=== PATIENT | female | born 1965 | race Two or more races ===

== ENCOUNTER 2022-09-28 12:56 | Emergency (ER) | payer OTHER ==
[~2022-09-28] VITALS: Ht 160 cm; Wt 63.5 kg
[~2022-09-28 12:56] MED LIST: AMBIEN10 MG PO; ATIVAN0.5 M1 PO; LEVSIN0.125 MG PO; MICARDIS80 MG PO; PROTONIX40 MG PO; ZANTAC300 MG PO
== END 2022-09-28 18:38 | disposition home or self-care (01) ==
LOC: ER 12:56
DX: K59.00 Constipation, unspecified (principal); I10 Essential (primary) hypertension; R11.10 Vomiting, unspecified
CPT/HCPCS: 36415; 74178; Q9965

== ENCOUNTER 2024-05-10 22:05 | Emergency (ER) | payer OTHER ==
[~2024-05-10] VITALS: Ht 160 cm; Wt 63.5 kg
[2024-05-10] MEDS ORDERED: ZESTRIL40 M1 (22:19)
[2024-05-11] MEDS ORDERED: METOCLOPRAMIDE HCL 5 MG/ML VIAL IM STA (01:16)
[2024-05-11] MEDS ORDERED: PROMETHAZINE HCL 25 MG/ML AMPUL IM STA (01:18)
[2024-05-11] MEDS ORDERED: 0.9 % SODIUM CHLORIDE 1,000 ML IV STA (01:19)
[2024-05-11] MEDS ORDERED: HYOSCYAMINE SULFATE 0.125 MG TAB.SUBL SL STA (01:20)
[2024-05-11] MEDS ORDERED: FAMOtidine 10 MG/ML (4ML VIAL) IV PUSH STA (01:20)
[2024-05-11] MEDS ORDERED: HYOSCYAMINE SULFATE 0.125 MG TAB.SUBL ONE (01:29)
[2024-05-11] MEDS ORDERED: PROMETHAZINE HCL 25 MG/ML AMPUL ONE (01:29)
[2024-05-11] MEDS ORDERED: FAMOTIDINE/PF 20 MG/2 ML VIAL ONE (01:30)
[2024-05-11] MEDS ORDERED: METOCLOPRAMIDE HCL 5 MG/ML VIAL ONE (01:30)
== END 2024-05-11 04:41 | disposition home or self-care (01) ==
LOC: ER 22:07
DX: K52.9 Noninfective gastroenteritis and colitis, unspecified (principal); K30 Functional dyspepsia; I10 Essential (primary) hypertension